=== PATIENT | female | born 1995 | race African-American/Black ===

== ENCOUNTER 2016-10-12 04:38 | Emergency (ER) | payer MEDICAID, OTHER ==
[~2016-10-12] VITALS: Ht 167.6 cm; Wt 65.0 kg
[~2016-10-12 04:38] MED LIST: AMOX875 PO; BENZ100 PO; MACR100C PO; PYRI200T4 PO
[2016-10-12 04:39] VITALS: BP 119/76; PULSE 81; RESP 16; TEMP 98.6; O2SAT 100
--- NOTE | 2016-10-12 05:06 | PD ---
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 Patient says that her period is irregular and she is not sure whether this is her period. She does have some pelvic cramps. She said there is a chance she could be . No other symptoms. She does not look to be in any distress. [facility] Past Medical History Narrative Medical List of her past medical, surgical, social and family history as reviewed from the nursing note. Social History Tobacco Use: Yes Allergies-Medications (Allergen,Severity, Reaction): Coded Allergies: No Known Allergies (Unverified , 10/12/16) Comments No known drug allergies. Reported Meds & Prescriptions Reported Meds & Active Scripts Active No Active Prescriptions or Reported Medications Narrative Medication List of her home medications reviewed from the nursing note. Review of Systems Except as stated in HPI: all other systems reviewed are Neg Physical Exam Narrative GENERAL: Awake, alert, no obvious distress SKIN: Focused skin assessment warm/dry. HEAD: Atraumatic. Normocephalic. EYES: Pupils equal and round. No scleral icterus. No injection or drainage. ENT: No nasal bleeding or discharge. Mucous membranes pink and moist. NECK: Trachea midline. No JVD. CARDIOVASCULAR: Regular rate and rhythm. No murmur appreciated. RESPIRATORY: No accessory muscle use. Clear to auscultation. Breath sounds equal bilaterally. GASTROINTESTINAL: Abdomen soft, non-tender, nondistended. Hepatic and splenic margins not palpable. MUSCULOSKELETAL: No obvious deformities. No clubbing. No cyanosis. No edema. NEUROLOGICAL: Awake and alert. No obvious cranial nerve deficits. Motor grossly within normal limits. Normal speech. PSYCHIATRIC: Appropriate mood and affect; insight and judgment normal. Data Data Last Documented VS Vital Signs Date Time Temp Pulse Resp B/P Pulse Ox O2 Delivery O2 Flow Rate FiO2 10/12/16 04:39 98.6 81 16 119/76 100 Room Air Orders Ed Urine Pregnancytest Poc (10/12/16 05:12) Ibuprofen (Motrin) (10/12/16 05:15) MDM Medical Decision Making Medical Screen Exam Complete: Yes Emergency Medical Condition: Yes Medical Record Reviewed: Yes Differential Diagnosis Irregular menstrual cycle, Dysmenorrhea, Narrative Course 6:07 AM urine is negative. Patient received Motrin for her pain. I' ll discharge her home. She has been recommended to follow-up with her [facility] [employer]TER. Procedures EKG Prior to Arrival: No Diagnosis Primary Impression: Irregular menstrual cycle Referrals: Primary Care Physician Additional Instructions: Follow-up with a [facility] TOOL[facility]TER. Return to the ER if the condition worsens or any other new concerns. Med/Other Pt SpecificInfo: No Change to Meds Scripts No Active Prescriptions or Reported Meds Disposition: 01 DISCHARGE HOME Condition: Stable Thelma Garduno MD Oct 12, 2016 05:06
[2016-10-12] MEDS ORDERED: IBUPROFEN 600 MG TAB PO ONE (05:15)
== END 2016-10-12 06:34 | disposition home or self-care (01) ==
LOC: NEPC 04:38
DX: N92.6 Irregular menstruation, unspecified (principal); Z72.0 Tobacco use
CPT/HCPCS: 84703; 99283